=== PATIENT | male | born 1970 | race Caucasian/White ===

== ENCOUNTER 2018-03-29 08:43 | Emergency (ER) | payer MEDICAID ==
[~2018-03-29] VITALS: Ht 188 cm; Wt 90.7 kg
[2018-03-29 09:16] VITALS: BP 100/53
[2018-03-29] MEDS ORDERED: NS 1000ML 1,000 ML IV STA ×2 (09:36→12:10)
--- NOTE | 2018-03-29 09:47 | ER.PDOC ---
General Chief Complaint: Neck/Upper back Pain Stated Complaint: NECK PAIN,DIZZINESS Time seen by MD: 09:44 Source: patient Exam Limitations: no limitations History of Present Illness Initial Comments Dizziness and neck pain since yesterday. Patient does construction work. Took blood pressure medication yesterday after a long time. Occurred: yesterday Severity: moderate Associated Symptoms: light headness Usually: walks w/o assistance Worsened By: nothing Allergies: Coded Allergies: No Known Allergies (Unverified , 03/29/18) Past Medical History Medical History: hypertension Social History Smoking: greater than 1 pack/day Alcohol Use: none Drug Use: none Review of Systems Constitutional: no symptoms reported Ears: dizziness Mouth: no symptoms reported Throat: no symptoms reported Respiratory: no symptoms reported Cardiovascular: no symptoms reported Musculoskeletal: see HPI All Other Systems: Reviewed and Negative Physical Exam General Appearance: alert, no distress EENT: nml eye inspection, PERRL, no nystagmus, nml ENT inspection, pharynx nml , TM's nml Neck: supple Respiratory: no resp distress, breath sounds nml CVS: reg rate & rhythm, heart sounds.nml Abdomen: non-tender, no organomegaly, no distention Skin: color nml, no rash, warm/dry Extremities: non-tender, nml ROM, no pedal edema Neuro/Psych: nml orientation, nml speech/cognition, nml mood/affect Sensorimotor: nml motor, nml sensation Comments Tenderness posterior aspect of neck. Results/Orders Results/Orders Laboratory Tests Test 03/29/18 09:45 White Blood Count 7.1 10^3/uL (4.5-11.0) Red Blood Count 3.49 10^6/uL (4.50-5.90) Hemoglobin 11.6 g/dL (13.9-16.3) Hematocrit 33.2 % (37.0-53.0) Mean Corpuscular Volume 95.1 fL (78-100) Mean Corpuscular Hemoglobin 33.2 pg (26-34) Mean Corpuscular Hemoglobin Concent 34.9 g/dL (33-37) Red Cell Distribution Width 14.9 % (11.5-14.5) Platelet Count 196 10^3/uL (150-400) Mean Platelet Volume 9.1 fL (7.8-11.0) Neutrophils (%) (Auto) 79.7 % (41.0-85.0) Lymphocytes (%) (Auto) 9.5 % (24.0-44.0) Monocytes (%) (Auto) 8.8 % (5.0-12.0) Neutrophils # (Auto) 5.7 10^3/uL (1.8-7.7) Lymphocytes # (Auto) 0.7 10^3/uL (1.0-4.8) Monocytes # (Auto) 0.6 10^3/uL (0.3-0.8) Absolute Immature Granulocyte (auto 0.02 10^3 u/L (0-2) Eosinophils % 1.1 % (0.0-5.0) Basophils % 0.6 % (0.0-0.2) Basophils # 0.0 10^3/uL (0.0-0.1) Eosinophil Count 0.1 10^3/uL (0.0-0.2) Sodium Level 135 mmol/L (132-145) Potassium Level 4.3 mmol/L (3.6-5.2) Chloride Level 98.0 mmol/L (96-109) Carbon Dioxide Level 20.8 mmol/L (20.0-32) Anion Gap 20.5 Blood Urea Nitrogen 53 mg/dL (7-18) Creatinine 4.87 mg/dL (0.59-1.40) Estimated GFR () 15.5 (>/=60) BUN/Creatinine Ratio 10.0 Glucose Level 133 mg/dL (70-110) Calcium Level 8.9 mg/dL (8.4-10.5) Total Bilirubin 0.8 mg/dL (0.2-1.0) Aspartate Amino Transf (AST/SGOT) 33 U/L (0-35) Alanine Aminotransferase (ALT/SGPT) 38 U/L (12-78) Alkaline Phosphatase 101 U/L (50-136) Troponin I < 0.02 ng/mL (0.00-0.05) Total Protein 7.8 g/dL (6.4-8.2) Albumin 4.3 g/dL (3.4-5.0) Globulin 3.5 Percent Immature Gran (Cell Imm) 0.30 % (0.00-0.50) Administered Medications Medications (Trade) Dose Ordered Sig/Daisy Route PRN Reason Start Time Stop Time Status Last Admin Dose Admin Sodium Chloride 1,000 ml @ 1,200 mls/hr Q50M STAT IV 03/29/18 09:36 03/29/18 10:25 DC 03/29/18 10:01 Progress Progress Patient has fluid in brain with mass effect and needs Neurosurgeon. EKG/XRAY/CT/US CT Comments: CT head: Prominent left para cerebellar fkuid with slight mass effect. Course Vitals & review Data Vital Sign - Last 24 Hours 03/29/18 03/29/18 03/29/18 03/29/18 09:10 09:10 09:16 11:10 Temp 98.3 98.3 98.3 98.3 98.3 98.3 98.3 98.3 Pulse 88 88 88 80 Resp 16 16 16 16 B/P (MAP) 100/53 (69) 103/53 (70) Pulse Ox 100 100 100 O2 Delivery Room Air Room Air Room Air Laboratory Tests Test 03/29/18 09:45 White Blood Count 7.1 10^3/uL Red Blood Count 3.49 10^6/uL Hemoglobin 11.6 g/dL Hematocrit 33.2 % Mean Corpuscular Volume 95.1 fL Mean Corpuscular Hemoglobin 33.2 pg Mean Corpuscular Hemoglobin Concent 34.9 g/dL Red Cell Distribution Width 14.9 % Platelet Count 196 10^3/uL Mean Platelet Volume 9.1 fL Neutrophils (%) (Auto) 79.7 % Lymphocytes (%) (Auto) 9.5 % Monocytes (%) (Auto) 8.8 % Neutrophils # (Auto) 5.7 10^3/uL Lymphocytes # (Auto) 0.7 10^3/uL Monocytes # (Auto) 0.6 10^3/uL Absolute Immature Granulocyte (auto 0.02 10^3 u/L Eosinophils % 1.1 % Basophils % 0.6 % Basophils # 0.0 10^3/uL Eosinophil Count 0.1 10^3/uL Sodium Level 135 mmol/L Potassium Level 4.3 mmol/L Chloride Level 98.0 mmol/L Carbon Dioxide Level 20.8 mmol/L Anion Gap 20.5 Blood Urea Nitrogen 53 mg/dL Creatinine 4.87 mg/dL Estimated GFR () 15.5 BUN/Creatinine Ratio 10.0 Glucose Level 133 mg/dL Calcium Level 8.9 mg/dL Total Bilirubin 0.8 mg/dL Aspartate Amino Transf (AST/SGOT) 33 U/L Alanine Aminotransferase (ALT/SGPT) 38 U/L Alkaline Phosphatase 101 U/L Troponin I < 0.02 ng/mL Total Protein 7.8 g/dL Albumin 4.3 g/dL Globulin 3.5 Percent Immature Gran (Cell Imm) 0.30 % Departure Time of Disposition: 12:04 Disposition: 02 XFER SHT-TRM HOSP Impression: Primary Impression: Kidney injury Additional Impressions: Brain pathology Neck pain Condition: Stable Referrals: PCP,UNKNOWN (PCP) PRIMARY CARE PROVIDER Comments Transfer to [facility] ED for Dr. Coronel Duration or Time Spent with Pa: 2 hours Problem Qualifiers Primary Impression: Kidney injury Encounter type: initial encounter Laterality: unspecified laterality Qualified Codes: S37.009A - Unspecified injury of unspecified kidney, initial encounter JEN MCGUIRE MD Mar 29, 2018 09:47
[2018-03-29 09:55] LABS: BASOPHIL % 0.6 % (0.0-0.2); EOSINOPHIL # 0.1 10^3/uL (0.0-0.2); EOSINOPHIL % 1.1 % (0.0-5.0); HEMOGLOBIN 11.6 g/dL (13.9-16.3); LYMPHOCYTES # 0.7 10^3/uL (1.0-4.8); LYMPHOCYTES % 9.5 % (24.0-44.0); MEAN CELL HGB 33.2 pg (26-34); MEAN CELL HGB CONCENTRATION 34.9 g/dL (33-37); MEAN CORP VOLUME 95.1 fL (78-100); MEAN PLATELET VOLUME 9.1 fL (7.8-11.0); MONOCYTES # 0.6 10^3/uL (0.3-0.8); MONOCYTES % 8.8 % (5.0-12.0); NEUTROPHIL # 5.7 10^3/uL (1.8-7.7); NEUTROPHILS % 79.7 % (41.0-85.0); RED CELL DISTRIBUTION WIDTH 14.9 % (11.5-14.5); WHITE BLOOD CELL 7.1 10^3/uL (4.5-11.0)
[2018-03-29] MEDS ORDERED: NS 1000ML 1,000 ML ONE ×2 (10:01→12:12)
--- NOTE | 2018-03-29 10:08 | PCM.EKG ---
[facility] Test Date: 2018-03-29 Test Time: 10:09:58 Pat Name: DONNA THOMSON [facility]: [id number]: Gender: Baby [employer] Worker: : 1970 Requested By: JEN MCGUIRE Order Number: [id number] Reading MD: Jen MCGUIRE Measurements Intervals [place] Rate: 79 P: 35 CO: 146 QRS: 19 QRSD: 82 T: 37 QT: 406 QTc: 465 Interpretive Statements Normal sinus rhythm Normal ECG No previous ECG available for comparison Electronically Signed On 03-30-2018 6:42:01 CDT by Jen MCGUIRE Please click the below link to view image of tracing.
[2018-03-29 10:17] LABS: ALANINE AMINOTRANSFERASE(ML) 38 U/L (12-78); ALKALINE PHOSPHATASE 101 U/L (50-136); ASPARTATE AMINO TRANSFERASE 33 U/L (0-35); CALCIUM 8.9 mg/dL (8.4-10.5); CARBON DIOXIDE 20.8 mmol/L (20.0-32); GLUCOSE 133 mg/dL (70-110)
--- NOTE | 2018-03-29 10:29 | DIREP ---
PROCEDURE:CT HEAD OR BRAIN W/O CONTRAST COMPARISON:None. INDICATIONS:Dizziness TECHNIQUE:CT images were created without intravenous contrast. FINDINGS: VENTRICLES: Negative. CEREBRUM: Negative. CEREBELLUM: Negative. BRAINSTEM: Negative. BASAL CISTERNS: Negative. SKULL: Negative. SINUSES: Negative. OTHER: Prominent left para cerebellar fluid/CSF space. Question of slight mass effect. Presentation raises question of arachnoid cyst. CONCLUSION: 1. There is no CT evidence of intracranial hemorrhage, or acute infarct. 2. Prominent left para cerebellar fluid/CSF space. Consider correlation with MRI. Dictated by: Grayson Forde M.D. on 03/29/2018 at 10:24 AM
--- NOTE | 2018-03-29 10:38 | DIREP ---
PROCEDURE: CT SPINE CERVICAL W/O COMPARISON:None. INDICATIONS:Pain FINDINGS: VERTEBRAE:There is no fracture or compression deformity. Minimal degenerative change. DISK SPACES:Multilevel disc space narrowing most severe at C6-7 and C7-T1. Broad-based disc bulge at C2-3, C3-4, C4-5. Limitations at C6-7 through T2. Disc protrusion at C6-7 not excluded. Mild to moderate central canal and neural foraminal narrowing at C6-7. PARASPINAL TISSUES:No obvious soft tissue swelling or mass. SPONDYLOLISTHESIS:None. OTHER:No additional findings. CONCLUSION: 1. Limitations due to artifact and body habitus. Significant disc pathology at C6-7 difficult to exclude. Consider correlation with MRI. 2. Loss of cervical lordosis. Can be caused by injury and/or trauma, stress and strain to the neck. 3. There is no visible fracture. 4. There is no subluxation. 5. Diskovertebral degenerative changes. Dictated by: Grayson Forde M.D. On 03/29/2018 at 10:28 AM
[2018-03-29 11:10] VITALS: BP 103/53
[2018-03-29] MEDS ORDERED: LISI1TAB7 PO (12:37)
[2018-03-29 12:45] VITALS: BP 114/59
--- NOTE | 2018-03-29 12:47 | NUR ---
Dispatch Called dispatch to inform EMS of transfer to [facility]
--- NOTE | 2018-03-29 12:52 | NUR ---
[facility] here at pt. bedside
--- NOTE | 2018-03-29 13:03 | NUR ---
[facility] REPORT Gave Krissy report at [facility]
[2018-03-29 13:11] VITALS: BP 114/59
== END 2018-03-29 12:52 | disposition short-term general hospital (02) ==
LOC: ER 08:43
DX: S37.009A Unspecified injury of unspecified kidney, initial encounter (principal); M54.2 Cervicalgia; R42 Dizziness and giddiness; F17.200 Nicotine dependence, unspecified, uncomplicated; I10 Essential (primary) hypertension; X58.XXXA Exposure to other specified factors, initial encounter; Y93.89 Activity, other specified; Y92.89 Other specified places as the place of occurrence of the external cause; Y99.8 Other external cause status
CPT/HCPCS: 36415; 70450; 72125; 80053; 84484; 85025; 93005; 96360; 96361; 99285; J7030 ×2